=== PATIENT | male | born 1995 | race Two or more races ===

== ENCOUNTER 2023-01-22 10:21 | Emergency (ER) | payer OTHER ==
[~2023-01-22] VITALS: Ht 176.5 cm; Wt 120.2 kg
== END 2023-01-22 17:46 | disposition home or self-care (01) ==
LOC: ER 10:21
DX: M25.571 Pain in right ankle and joints of right foot (principal)

== ENCOUNTER 2024-06-20 11:52 | Emergency (ER) | payer OTHER ==
[~2024-06-20] VITALS: Ht 175.3 cm; Wt 127.0 kg
[2024-06-20] MEDS ORDERED: TRAMADOL HCL 50 MG TABLET PO STA (13:34)
== END 2024-06-20 18:35 | disposition home or self-care (01) ==
LOC: ER 12:04
DX: S42.402A Unspecified fracture of lower end of left humerus, initial encounter for closed fracture (principal); W19.XXXA Unspecified fall, initial encounter; Y93.89 Activity, other specified; Y92.89 Other specified places as the place of occurrence of the external cause; Y99.9 Unspecified external cause status

== ENCOUNTER 2024-06-24 10:21 | Outpatient (CLI) | payer OTHER | END 2024-06-24 10:24 | disposition home or self-care (01) | LOC: MRI 10:21 | PROVIDERS: ATTEND Orthopaedic Surgery | DX: M25.522 Pain in left elbow (principal); M79.632 Pain in left forearm | CPT/HCPCS: 73221 ==

== ENCOUNTER 2024-06-26 11:12 | Outpatient (CLI) | payer OTHER | END 2024-06-26 11:25 | disposition home or self-care (01) | LOC: TOM 11:12 | PROVIDERS: ATTEND Orthopaedic Surgery | DX: S52.042A Displaced fracture of coronoid process of left ulna, initial encounter for closed fracture (principal) ==

== ENCOUNTER 2024-11-07 16:26 | Emergency (ER) | payer OTHER ==
[~2024-11-07] VITALS: Ht 175.3 cm; Wt 127.0 kg
[2024-11-07] MEDS ORDERED: ATORVASTATIN CA10 MG PO (17:34)
[2024-11-07] MEDS ORDERED: METFORMIN HCL500 M3 PO (17:34)
[2024-11-07] MEDS ORDERED: ONDANSETRON HCL 2 MG/ML VIAL IV ONE (19:00)
[2024-11-07] MEDS ORDERED: 0.9 % SODIUM CHLORIDE 1,000 ML IV ONE (19:00)
[2024-11-07] MEDS ORDERED: LACTOBACILLUS ACIDOPHILUS 1 CAP CAP PO ONE ×2 (19:00→19:04)
[2024-11-07] MEDS ORDERED: FAMOTIDINE/PF 20 MG/2 ML VIAL IV ONE (19:00)
[2024-11-07] MEDS ORDERED: ONDANSETRON HCL 2 MG/ML VIAL ONE (19:03)
[2024-11-07] MEDS ORDERED: FAMOTIDINE/PF 20 MG/2 ML VIAL ONE (19:04)
[2024-11-07 19:35] LABS: BASO % 0.2 % (0.1-1.2); EOS # 0.05 (0.04-0.54); EOS % 0.5 % (0.7-7.0); LYMPH # 1.03 (1.18-3.74); LYMPH % 9.8 % (19.3-53.1); MEAN PLATELET VOLUME 9.90 fl (9.4-12.4); MONO # 0.53 (0.24-0.82); MONO % 5.1 % (4.7-12.5); NEUT # 8.81 (1.56-6.13); NEUT % 84.1 % (34.0-71.1); RED CELL DISTRIBUTION WIDTH 12.8 % (11.6-14.4)
[2024-11-07 20:01] LABS: ALT/SGPT 28.0 U/L (12-78); AST/SGOT 11.0 U/L (15-37); BILIRUBIN TOTAL 0.57 mg/dL (0.3-1.2); BUN CREA RATIO 13.0 (7.0-25.0); CREATININE SERUM 0.8 mg/dL (0.70-1.30); GFR 115.96; GLOBULINA 4.2 G/DL (2.4-3.5); GLUCOSE FASTING 115.0 mg/dL (65-100); OSMOLALITY SERUM 281.0 MOSM/KG (275-295)
[2024-11-07 20:43] LABS: COVID-19 AG NEGATIVE (NEGATIVE)
[2024-11-07] MEDS ORDERED: ACETAMINOPHEN 500 MG GEL..CAP PO ONE ×2 (21:13→21:30)
[2024-11-07] MEDS ORDERED: PEPCID AC20 MG PO (22:25)
[2024-11-07] MEDS ORDERED: ONDANSETRON HCL4 MG PO (22:25)
[2024-11-07] MEDS ORDERED: INTESTINEX680 M1 PO (22:25)
== END 2024-11-07 22:35 | disposition home or self-care (01) ==
LOC: ER 16:26
PROVIDERS: General Practice
DX: K52.9 Noninfective gastroenteritis and colitis, unspecified (principal); R10.9 Unspecified abdominal pain; R11.2 Nausea with vomiting, unspecified; Z20.822 Contact with and (suspected) exposure to COVID-19; E11.9 Type 2 diabetes mellitus without complications; Z79.84 Long term (current) use of oral hypoglycemic drugs